=== PATIENT | female | born 1950 | race Caucasian/White ===

== ENCOUNTER 2016-07-15 21:12 | Emergency (ER) | payer MEDICARE, OTHER ==
[~2016-07-15] VITALS: Ht 177.8 cm; Wt 61.8 kg
[2016-07-15 21:17] VITALS: BP 135/68; PULSE 68; RESP 20; O2SAT 94
--- NOTE | 2016-07-15 21:37 | ED.REPORT ---
HPI-General Illness Date of Service July 15, 2016 ED Provider: Dr. Juan Miller M.D. A 65 year old female with a history of SVT/PAC s/p recent cardiac catheterization (07/13/16) presents to the ED reporting right groin pain at her surgical incision site onset 1900 this evening. The area is also swollen. The patient denies other symptoms. Her catheterization took place at [facility] and was done in response to abnormal results from a nuclear stress test. The patient spoke to the information technology administrator aboriginal education teacher today who recommended a vascular ultrasound to check for a pseudoaneurysm. Nursing Notes Stated Complaint: KEY PAIN AT INCISION SITE Chief Complaint: General Complaint Nursing Notes Reviewed: Yes Allergies: Coded Allergies: No Known Allergies (Unverified , 07/15/16) General Time Seen by MD: 21:36 Chief Complaint Other (Right Groin Surgical Incision Pain) Hx Obtained From: Patient Arrived By: Walk-in Sudden in Onset?: Yes Onset Occurred: 1 - 4 hours ago Symptom Duration: Since onset Location: : Abdomen (Right groin) Quality: Painful Severity: Current: Moderate Severity: Maximum: Moderate Pertinent Negative: Relieved by nothing Recent Healthcare: Recent doctor visit, Previous surgery Past Medical History Past Medical History Notes: Normal cardiac catheterization 07/13/16 Past Medical History SVT/PAC Past Surgical History Cardiac catheterization Smoking History Unknown if Ever Smoker Social History Other Social History: Good social support, Ambulatory Status Independent Review of Systems + Right groin pain and swelling at surgical incision site Full Review of Systems Constitutional: Denies: Fever Respiratory: Denies: Non-productive cough, Shortness of breath GI: Denies: Diarrhea, Vomiting Complete sys rev & neg: except as marked. Physical Exam Vital Signs Vital Signs Date Time Temp Pulse Resp B/P Pulse Ox O2 Delivery O2 Flow Rate FiO2 07/16/16 00:52 36.2 63 16 112/58 97 Room Air 07/15/16 21:17 36.3 68 20 135/68 94 Room Air Initial VS: Reviewed, Vital signs normal Head / Eyes: Atraumatic, Normocephalic ENT: Conjunctiva normal, No scleral icterus Neck: Supple, Full range of motion Respiratory: Breath sounds normal, Clear to auscultation, No respiratory distress Cardiovascular: Regular rate & rhythm, Heart sounds normal Skin: Warm, Dry, No cyanosis Neurologic: Alert, Oriented, Nonfocal Psychiatric: Mood/affect normal, Behavior normal, Normal thought content General/Constitutional: Awake, Alert Abdomen: Soft, Non-tender Tender lump at closure site in right groin Minimal superficial erythema that appears to be a contact rash No ecchymosis Interpretation & Diagnostics US ARTERY LEG DPLX UNI RT: Impression: 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 Report transmitted to ED by radiologist Anibal Mott M.D. at 07/15/2016 - 11:51:24 PM PDT Re-Eval/Medical Decision Med Decision/Clinical Course 65-year-old female status post cardiac catheterization with pain and swelling at the right femoral artery access site. Ultrasound shows a small pseudoaneurysm. Case was discussed with Dr. Harman, her on-call information technology administrator. He suggests that she follow up with the clinic Wednesday. Time of Eval: 00:10 Patient Status: Condition improved Re-Evaluation/Progress Note: Discussed with patient US results, cardiology consult, diagnosis, and plan for discharge. Follow-up and return to the ER instructions given. Patient agrees with plan for care and all questions were addressed. Consultation : Referral / Consult Name: Parag Harman MD Consulted With: Cardiology Call Returned at: 23:45 [place] Worker Helper: Agrees with eval, Agrees with plan Note: Dr. Harman aboriginal education teacher for Dr. Tobias: Discussed US results. Recommends discharge with close outpatient follow-up. Counseled Regarding: Diagnosis, Need for follow-up, When/why to return to ED Discharge & Departure Primary Impression: Pseudoaneurysm Disposition: Home Discharge Condition All VS Reviewed: Yes Condition: Improved Patient Instructions: Pseudoaneurysm (ED) Additional Instructions: Thank you for entrusting us with your care. Your ultrasound indicated a small pseudoaneurysm (see preliminary report). Acetaminophen to 1000 mg 3 times a day as needed for pain. Hydrocodone/ acetaminophen 5/325 (Vicodin), one or 2 tablets every 6 hours as needed for severe pain, #10 dispensed. Both of these options have acetaminophen in them so do not use them together. Do not drink alcohol, drive, engage in dangerous activities while taking the hydrocodone. We have spoken with Dr. Harman, your on-call information technology administrator [place]. They want you to call the clinic tomorrow for a follow-up appointment on Wednesday this week.. Return to the ER with any new or worsening symptoms including increasing pain or bruising. Referrals: Audrey Ellis MD (PCP) Les Tobias MD Attestation Portions of this note were transcribed by Kelsey Kraft. I, Dr. Miller, personally performed the history, physical exam, and medical decision-making; I reviewed and confirmed the accuracy of the information in the transcribed note. Signed by: Shanna Lee, 07/16/2016, 01:25 copies to: Audrey Ellis MD; Les Tobias MD, Howard L MD July 15, 2016 21:37 KELSEY KRAFT July 15, 2016 21:44
[2016-07-16] MEDS ORDERED: _HYDROcodone/APAP 5-325 mg Tablet PO PRN (00:15)
[2016-07-16 00:52] VITALS: BP 112/58; PULSE 63; RESP 16; O2SAT 97
--- NOTE | 2016-07-16 08:58 | DRSVH ---
PROCEDURE: US DUPLEX DOPPLER UNILATERAL LEG ARTERIES, RIGHT INDICATIONS: painful lump after cardiac cath TECHNIQUE: Color and pulse Doppler interrogation was performed of the right lower extremity arterial system, wit h image documentation. COMPARISON: None. FINDINGS: There is a presumed pseudoaneurysm measuring 1.7 x 1.2 x 0.87 cm seen communicating with the common f emoral artery. There is observed biphasic flow. The pseudoaneurysm neck measures approximately 2.5 mm in diameter. IMPRESSION: Right groin pseudoaneurysm as above. Findings were provided to Dr. Miller by the sonogr apher at 2315 hrs. on 07/15/16 Dictated by: Venancio Ferreira M.D. on 07/16/2016 at 8:52 Approved by: Venancio Ferreira M.D. on 07/16/2016 at 8:56
== END 2016-07-16 00:30 | disposition home or self-care (01) ==
LOC: SED 21:12
DX: I72.4 Aneurysm of artery of lower extremity (principal)